=== PATIENT | male | born 1990 | race Caucasian/White ===

== ENCOUNTER 2017-10-16 14:21 | Emergency (ER) | payer SELFPAY ==
[~2017-10-16] VITALS: Ht 180.3 cm; Wt 88.5 kg
[2017-10-16] MEDS ORDERED: LIDOCAINE/EPI 2% 1:100,00 (XYLOCAINE) 20 ML VIAL ONE (14:29)
[2017-10-16] MEDS ORDERED: LIDOCAINE/EPI 1%-1:100,000 (XYLOCAINE) 20ML INJ ONE (14:30)
--- NOTE | 2017-10-16 14:35 | ED EENT ---
History of Present Illness General Stated Complaint: TONSIL ABCESS Source: patient Exam Limitations: no limitations (GONZALO NASSAR) History of Present Illness Date Seen by Provider: Oct 16, 2017 Time Seen by Provider: 14:31 Initial Comments Patient is a 27-year-old male sent over from [facility] for a left peritonsillar abscess. He reports that he was seen last week at [facility] or a sore throat they swapped his throat and it was negative for strep throat and they treated him for allergies. He went back today for increased throat swelling and continued sore throat and they swapped him again and he does have strep throat and peritonsillar abscess. He was given a IM shot of Bicillin. Timing/Duration: this morning Location: throat Associated Symptoms: sore throat, voice change (GONZALO NASSAR) Allergies and Home Medications Allergies Coded Allergies: No Known Drug Allergies (Unverified , 10/16/17) Home Medications No Active Prescriptions or Reported Meds Patient Home Medication List Home Medication List Reviewed: Yes (GONZALO NASSAR) Review of Systems Constitutional: see HPI; No chills, No fever Eyes: See HPI; Denies Blindness, Denies Blurred Vision Ears: See HPI; Denies Dizziness, Denies Pain Nose: see HPI; denies clots, denies congestion, denies epistaxis Mouth: see HPI; denies clots, denies loose teeth, denies pain Throat: see HPI, pain, swelling, hoarse, muffled, painful swallowing Respiratory: see HPI; No cough, No dyspnea on exertion Cardiovascular: see HPI; No chest pain Gastrointestinal: no symptoms reported Musculoskeletal: see HPI; No back pain, No gout, No joint pain Skin: see HPI; No rash, No other Neurological: See HPI; Denies Anxiety, Denies Depressed Hematologic/Lymphatic: See HPI; Denies Anemia Immunological/Allergic: see HPI; denies food allergy (GONZALO NASSAR) All Other Systems Reviewed Negative Unless Noted: Yes (GONZALO NASSAR) Past Kxxzhuv-Vuejbz-Jxdjro Hx Past Med/Social Hx: Reviewed Nursing Past Med/Soc Hx (GONZALO NASSAR) Patient Social History Recent Foreign Travel: No Contact w/Someone Who Travel: No (GONZALO NASSAR) Family Medical History Reviewed Nursing Family Hx (GONZALO NASSAR) Physical Exam Vital Signs Vital Signs - First Documented 10/16/17 14:32 Temp 98.7 Pulse 87 Resp 20 B/P (MAP) 151/94 (113) Pulse Ox 97 (EAMON FINK MD) Height, Weight, BMI Height: '" Weight: lbs. oz. kg; BMI Method: General Appearance: WD/WN, no apparent distress Eyes: bilateral eye normal inspection, bilateral eye PERRL, bilateral eye EOMI Ears: bilateral ear auricle normal, bilateral ear canal normal, bilateral ear TM normal Nose: normal inspection; No active bleeding Mouth/Throat: pharynx swelling, pharynx tenderness, tonsillar swelling (left peritonsillar abscess), voice changes (muffled hot potato voice) Neck: non-tender, full range of motion, supple, normal inspection Cardiovascular: regular rate, rhythm, no edema, no gallop, no JVD, no murmur Respiratory: chest non-tender, lungs clear, normal breath sounds, no respiratory distress, no accessory muscle use Gastrointestinal: normal bowel sounds, non tender, soft, no organomegaly, no pulsatile mass Neurologic/Psychiatric: alert, normal mood/affect, oriented x 3 Skin: normal color, warm/dry (GONZALO NASSAR) Procedures/Interventions I&D : Site: peritonsillar abscess Blade Size: 18-gauge needle Progress The throat was pretreated with Hurricaine spray. The left peritonsillar abscess was then anesthetized with approximately 1 mL of 1% lidocaine with epinephrine. In guarded 18-gauge needle was inserted into the abscess aspirating approximately 4-5 mL of purulent drainage. A culture was sent. There was minimal bleeding and the patient reported that he immediately felt better. Bleeding was minimal and controlled. (GONZALO NASSAR) Progress/Results/Core Measures Results/Orders Vital Signs/I&O 10/16/17 14:32 Temp 98.7 Pulse 87 Resp 20 B/P (MAP) 151/94 (113) Pulse Ox 97 (EAMON FINK MD) Progress Progress Note : Progress Note Seen and evaluated the patient with Gonzalo Nassar APRN. Patient here with left peritonsillar abscess. Sent from clinic. Has already had IM penicillin from the clinic for strep positive screen. I do note large left peritonsillar abscess. He is able to swallow secretions. Voice somewhat muffled but is able to talk, breathing and swallow. We did perform aspiration of the peritonsillar abscess from the superior pole after anesthesia with Hurricaine spray and small local with 2 percent lidocaine with epi and performed with with 18-gauge needle safety cap so only 1 cm protruded from the end. Approximately 4 mL of purulent drainage obtained. Sent for culture. Patient tolerated procedure well with no complications. Discharged home with return precautions. Patient verbalize understanding instructions and agreement with plan. (EAMON FINK MD) Departure Impression Primary Impression: Peritonsillar abscess Disposition: HOME, SELF-CARE Condition: Stable/Unchanged Departure-Patient Inst. Decision time for Depature: 15:21 (GONZALO NASSAR) Referrals: [facility] (PCP/Family) Primary Care Physician Patient Instructions: Peritonsillar Abscess, Adult (DC) Add. Discharge Instructions: Return back to the emergency room tomorrow after work around 5:00 for recheck. 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 Return back to the emergency room in the meantime for any concerns as needed. Follow-up with your doctor within 1 week for recheck. Scripts No Active Prescriptions or Reported Meds GONZALO NASSAR Oct 16, 2017 14:35 EAMON FINK MD Oct 16, 2017 15:01
[2017-10-16] MEDS ORDERED: DEXAMETHASONE 10 MG/ML (DECADRON) 1 ML VIAL IM ONE (15:30)
[2017-10-16 15:43] VITALS: BP 142/75
== END 2017-10-16 15:37 | disposition home or self-care (01) ==
LOC: EDUNIT# 14:21 → ER 14:24
DX: J36 Peritonsillar abscess (principal)
CPT/HCPCS: 42700; 87070; 87205; 96372

== ENCOUNTER 2017-10-17 17:32 | Emergency (ER) | payer SELFPAY ==
[~2017-10-17] VITALS: Ht 180.3 cm; Wt 86.2 kg
--- NOTE | 2017-10-17 17:55 | ED EENT ---
History of Present Illness General Chief Complaint: Wound Check (No Charge) Stated Complaint: WOUND CHECK Source: patient Exam Limitations: no limitations History of Present Illness Date Seen by Provider: Oct 17, 2017 Time Seen by Provider: 17:53 Initial Comments Patient is a 27-year-old male who presents to the emergency room for a peritonsillar abscess recheck. He was seen yesterday and had an I&D of peritonsillar abscess and I had him follow today for recheck. Timing/Duration: yesterday Location: throat Prearrival Treatment: other (I&D and antibiotics) Modifying Factors: Improves With Antibiotics Associated Symptoms: No cough, No drooling, No ear drainage, No facial pain/ swelling, No sore throat, No voice change Allergies and Home Medications Allergies Coded Allergies: No Known Drug Allergies (Unverified , 10/16/17) Home Medications No Active Prescriptions or Reported Meds Patient Home Medication List Home Medication List Reviewed: Yes Review of Systems Constitutional: see HPI; No chills, No diaphoresis, No fever Eyes: See HPI; Denies Blindness, Denies Blurred Vision, Denies Drainage Ears: See HPI; Denies Dizziness, Denies Tinnitus, Denies Bloody Discharge Nose: see HPI; denies clots, denies congestion Mouth: see HPI; denies clots, denies loose teeth Throat: see HPI, pain (minimal pain); denies swelling, denies neck stiffness, denies hoarse, denies painful swallowing Respiratory: see HPI; No cough, No dyspnea on exertion Cardiovascular: see HPI; No chest pain, No edema Gastrointestinal: see HPI; No abdominal pain, No constipation, No diarrhea Musculoskeletal: see HPI; No back pain, No gout, No joint swelling, No muscle pain Skin: see HPI; No change in color, No change in hair/nails Neurological: See HPI; Denies Anxiety, Denies Depressed Hematologic/Lymphatic: See HPI; Denies Blood Clots, Denies Easy Bleeding Immunological/Allergic: see HPI; denies food allergy, denies grass allergy All Other Systems Reviewed Negative Unless Noted: Yes Past Sbjlktn-Zqsmed-Zpihkb Hx Past Med/Social Hx: Reviewed Nursing Past Med/Soc Hx Patient Social History Alcohol Beverage of Choice: Beer Type Used: Smokeless Tobacco Recent Foreign Travel: No Contact w/Someone Who Travel: No Past Medical History Surgeries: Yes (hernia) Appendectomy Respiratory: No Cardiac: No Genitourinary: No Gastrointestinal: No Musculoskeletal: No Endocrine: No Cancer: No Psychosocial: No Blood Disorders: No Family Medical History Reviewed Nursing Family Hx Physical Exam Vital Signs Vital Signs - First Documented 10/17/17 10/17/17 17:45 17:56 Temp 97.4 Pulse 80 Resp 18 B/P (MAP) 127/73 Pulse Ox 96 Height, Weight, BMI Height: 5'11.00" Weight: 195lbs. oz. 88.844132lm; BMI Method:Stated General Appearance: WD/WN, no apparent distress Eyes: bilateral eye normal inspection, bilateral eye PERRL, bilateral eye EOMI Ears: bilateral ear auricle normal, bilateral ear canal normal, bilateral ear TM normal Nose: normal inspection; No active bleeding, No discharge Mouth/Throat: normal mouth inspection; No dental tenderness, No excessive drooling, No tonsillar swelling, No voice changes; other (the abscess is gone at this point. The left side of his tonsils are reddened. Minimal pain.) Neck: non-tender, full range of motion Cardiovascular: regular rate, rhythm, no edema, no gallop, no JVD, no murmur Respiratory: chest non-tender, lungs clear, normal breath sounds, no respiratory distress, no accessory muscle use Gastrointestinal: normal bowel sounds, non tender, soft, no organomegaly, no pulsatile mass Neurologic/Psychiatric: alert, normal mood/affect, oriented x 3 Skin: normal color, warm/dry Departure Impression Primary Impression: Peritonsillar abscess Disposition: 01 HOME, SELF-CARE Condition: Stable/Unchanged Departure-Patient Inst. Decision time for Depature: 17:54 Referrals: [facility] (PCP/Family) Primary Care Physician Patient Instructions: Peritonsillar Abscess, Adult (DC) Add. Discharge Instructions: Continue your medication as previously prescribed. Follow up with [facility] within 1 week for recheck. Return back to the emergency room for any increased fevers, shortness of breath, throat swelling, or any concerns as needed. All discharge instructions reviewed with patient and/or family. Voiced understanding. Scripts No Active Prescriptions or Reported Meds ALEKSANDAR NASSAR Oct 17, 2017 17:55
[2017-10-17 17:56] VITALS: BP 127/73
== END 2017-10-17 17:59 | disposition home or self-care (01) ==
LOC: EDUNIT# 17:32 → ER 17:33
DX: J39.0 Retropharyngeal and parapharyngeal abscess (principal); Z90.89 Acquired absence of other organs; Z87.19 Personal history of other diseases of the digestive system